=== PATIENT | female | born 1945 | race Caucasian/White ===

== ENCOUNTER 2018-04-05 08:25 | Day surgery (SDC) | payer MEDICARE, BC ==
[~2018-04-05] VITALS: Ht 165.1 cm; Wt 74.8 kg
[~2018-04-05 08:25] MED LIST: ALIR75PE SQ; AMLO2.5T45 PO; ASPI-867 PO; BUPR300T52 PO; CLOP75TA16 PO; DONE10TA11 PO; FLUO20CA33 PO; FURO-152 PO; GLYB5TAB7 PO; LISI-604 PO; METF1000 PO; METO-396 PO; NPH,100V SQ
[2018-04-05] MEDS ORDERED: IOHEXOL-300 100 ML BOTTLE ONE ×2 (09:49→10:11)
[2018-04-05] MEDS ORDERED: LIDOCAINE HCL/PF 1% 10 MG/ML 5ML VIAL ONE (09:49)
[2018-04-05] MEDS ORDERED: MIDAZOLAM HCL 2 MG/2 ML VIAL ONE (10:16)
[2018-04-05] MEDS ORDERED: FENTANYL CITRATE/PF 50MCG/ML 2ML VIAL ONE (10:17)
[2018-04-05] MEDS ORDERED: ACETAMINOPHEN 325MG TABLET PO PRN (10:45)
[2018-04-05] MEDS ORDERED: ONDANSETRON HCL 4MG/2ML VIAL IV PRN (10:45)
[2018-04-05] MEDS ORDERED: ATROPINE SULFATE 1MG/10ML SYR IV PRN (10:45)
[2018-04-05] MEDS ORDERED: NITROGLYCERIN 50MCG/ML 10ML VIAL (CATH LAB) IV ONE (14:21)
[2018-04-05] MEDS ORDERED: HEPARIN SODIUM 1,000 UNIT/1ML VIAL IV ONE (14:21)
[2018-04-05] MEDS ORDERED: NICARDIPINE 100MCG/ML 10ML VIAL (CATH LAB) IV ONE (14:21)
== END 2018-04-05 13:30 | disposition home or self-care (01) ==
LOC: CCL 08:25
PROVIDERS: ATTEND Specialist
DX: I25.10 Atherosclerotic heart disease of native coronary artery without angina pectoris (principal); I34.0 Nonrheumatic mitral (valve) insufficiency; K21.9 Gastro-esophageal reflux disease without esophagitis; E78.5 Hyperlipidemia, unspecified; I10 Essential (primary) hypertension; E11.9 Type 2 diabetes mellitus without complications; Z98.890 Other specified postprocedural states; Z79.84 Long term (current) use of oral hypoglycemic drugs; Z79.4 Long term (current) use of insulin; Z79.899 Other long term (current) drug therapy; Z79.82 Long term (current) use of aspirin
CPT/HCPCS: 93458; 99152; C1769; C1893; J1644; J2250; J3010; J3490; Q9967

== ENCOUNTER → 2021-10-21 | Day surgery (SDC) | payer MEDICARE ==
[~2021-10-21] MED LIST changes: +ACETAMINOPHEN 325MG TABLET PO PRN; -ALIR75PE SQ; +ALIR75PE5 SQ; +ATOR80TA PO; +CLOP-31 PO; -CLOP75TA16 PO; +COR25 PO; +FENTANYL CITRATE/PF 50MCG/ML 2ML VIAL ONE; +IODIXANOL 320MG/ML 100 ML BOTTLE IV ONE; +LIDOCAINE HCL 1% 30ML VIAL (10MG/ML) ONE; -LISI-604 PO; +LISI20TA31 PO; +MIDAZOLAM HCL 2 MG/2 ML VIAL ONE; +ONDANSETRON HCL 4MG/2ML INJ IV PRN; +SACU1TAB PO; +SITA100T11 PO
== END | disposition home or self-care (01) ==
LOC: CCL 06:32
PROVIDERS: ATTEND Specialist
DX: I73.9 Peripheral vascular disease, unspecified (principal); E11.51 Type 2 diabetes mellitus with diabetic peripheral angiopathy without gangrene; E78.5 Hyperlipidemia, unspecified; F02.80 Dementia in other diseases classified elsewhere, unspecified severity, without behavioral disturbance, psychotic disturbance, mood disturbance, and anxiety; I25.5 Ischemic cardiomyopathy; I11.0 Hypertensive heart disease with heart failure; I50.9 Heart failure, unspecified; I25.10 Atherosclerotic heart disease of native coronary artery without angina pectoris; G30.9 Alzheimer's disease, unspecified; Z20.822 Contact with and (suspected) exposure to COVID-19; Z79.899 Other long term (current) drug therapy; Z98.890 Other specified postprocedural states; Z88.8 Allergy status to other drugs, medicaments and biological substances
CPT/HCPCS: 36246; 75710; 87426; C1760; C1769; C1893; C1894; J1644; J2250; J3010; J3490; Q9967; 99152; 99153; G0500